=== PATIENT | male | born 1945 | race American Indian/Alaskan Native ===

== ENCOUNTER → 2018-04-22 | Outpatient (CLI) | payer MEDICARE, BC ==
[~2018-04-22] MED LIST: AMLO5 PO; ASPI81CH PO; Alpha Lipoic A100 MG PO; BENADRYL25 MG PO; BUME2 PO; CEPH500 PO; CHRO200 PO; DOCU100 PO; FAMO20 PO; FINA5 PO; FISH1000 PO; FURO80 PO; GABA400 PO; GLIP10; GLIP10 PO; GLIP10ER PO; HUMULIN N100 UNIT/1 SC; HYDCOR2.5B TOP; HYDMOR2 PO; HYDRA50 PO; Humulin N100 UNIT/1 SC; IBUP600 PO; INSR10I; INSUASPI SC; IRON150C PO; LIDO5TP TOP; LISHYD1012 PO; LISI20; LISI5 PO; LOSHYD; METF500 PO; METF500C PO; MULVITMIND PO; NEBI5 PO; NITR.4SL SL; Naprosyn500 MG PO; Novolin R100 UNIT/M SC; OXYC10ER PO; OXYC5 PO; PANT40 PO; PROTONIX IV; RABE20; SULTRIDS PO; TAMS.4ER PO; TETR.05OPS BOTHEYES; TRAM50; VITAMIN C PO; [UNRECOGNIZED DRUG - OTHER]; [UNRECOGNIZED DRUG - REMARK]; [UNRECOGNIZED DRUG - REMARK]
== END | disposition home or self-care (01) ==
LOC: LAB 17:18 → LAB SHORT 17:18
DX: L02.211 Cutaneous abscess of abdominal wall (principal); L81.4 Other melanin hyperpigmentation
CPT/HCPCS: 87070; 87077; 87147; 87186; 87205

== ENCOUNTER → 2019-07-28 | Outpatient (CLI) | payer MEDICARE, BC | END | disposition home or self-care (01) | LOC: LAB 16:51 → LAB SHORT 16:51 | DX: L02.214 Cutaneous abscess of groin (principal) | CPT/HCPCS: 87070; 87075; 87205 ==

== ENCOUNTER 2020-01-06 13:23 | Day surgery (SDC) | payer OTHER, MEDICARE, BC ==
[~2020-01-06] VITALS: Ht 165.1 cm; Wt 97.1 kg
[~2020-01-06 13:23] MED LIST changes: +ALBU90OI INH; +Accuneb0.63 MG/3 INH; +FERROUS GLUCON324 MG PO; +FISH OIL 1,001000 MG PO; +METANX CAPSULE1 EACH PO; +NOVOLIN N100 UNIT/1 SC; +Neurontin300 MG PO; +Oxycodone-Apap1 EAC3 PO; +SENN187 PO; +VITAMIN C500 M3 PO
[2020-01-06] MEDS ORDERED: TAMS.4ER (14:08)
[2020-01-06] MEDS ORDERED: METO25ER (14:09)
== END 2020-01-06 16:22 | disposition home or self-care (01) ==
LOC: ORSCSDS 13:23
PROVIDERS: Ophthalmology
PROC: 081X0J3 Bypass Right Lacrimal Duct to Nasal Cavity with Synthetic Substitute, Open Approach (ICD-10-PCS; principal; 2020-01-06 15:00)
DX: H04.551 Acquired stenosis of right nasolacrimal duct (principal); I10 Essential (primary) hypertension; E11.9 Type 2 diabetes mellitus without complications; Z79.899 Other long term (current) drug therapy; Z79.82 Long term (current) use of aspirin; F17.210 Nicotine dependence, cigarettes, uncomplicated; N18.9 Chronic kidney disease, unspecified; Z79.4 Long term (current) use of insulin; Z79.84 Long term (current) use of oral hypoglycemic drugs
CPT/HCPCS: 82947; J2001; J2704